=== PATIENT | male | born 1980 | race Caucasian/White ===

== ENCOUNTER → 2020-03-21 11:38 | Outpatient (CLI) | payer BC, SELFPAY ==
[2020-03-21 11:45] LABS: Bacteria Urine None Seen; RBC Urine None Seen (0-5/HPF)
[2020-03-21 12:21] LABS: Appearance Urine UA CLEAR; Bilirubin Urine UA NEGATIVE (NEGATIVE); Color Urine UA YELLOW; Glucose Urine UA NEGATIVE (Negative); Ketones Urine UA NEGATIVE (NEGATIVE); Leukocyte Esterase Urine UA NEGATIVE (NEGATIVE); Nitrite Urine UA NEGATIVE (Negative); Occult Blood Urine UA NEGATIVE (Negative); Protein Urine UA NEGATIVE (Negative); Specific Gravity Urine UA 1.015 (1.000-1.035); Urobilinogen Urine UA 0.2 E.U./dL (0.2); pH Urine UA 7.5 (4.5-8.0)
[2020-03-21 12:23] LABS: Add Manual Diff / Slide Review NO; Basophils Absolute Auto 0 /uL (0-100); Basophils Percent Auto 0.3 % (0-2); Eosinophils Absolute Auto 0 /uL (0-450); Eosinophils Percent Auto 0.4 % (2-4); Hematocrit 46.8 % (41-53); Hemoglobin 16.1 g/dL (13.5-17.5); Lymphocytes Absolute Auto 1300 /uL (1100-4500); Lymphocytes Percent Auto 28.4 % (25-40); Mean Corpuscular HGB Conc 34.4 % (30-36); Mean Corpuscular Volume 87.1 fL (80-100); Monocytes Absolute Auto 400 /uL (0-900); Monocytes Percent Auto 7.8 % (3-14); Neutrophils Absolute Auto 2900 /uL (1500-7000); Neutrophils Percent Auto 63.1 % (50-75); Platelet Count 179 X10^3/uL (150-400); Red Blood Cell Count 5.37 X10^6/uL (4.5-5.9); Red Cell Distribution Width 12.9 % (11.6-14.8); White Blood Cell Count 4.6 X10^3/uL (4.5-11.0)
[2020-03-21 12:30] LABS: Hemoglobin A1C% w Est Avg Glu 5.4 % (4.0-6.0)
[2020-03-21 12:36] LABS: Squamous Epithelial Cell Urine 0-1 /HPF (0-5/HPF); WBC Urine 0-1/HPF (0-5/HPF)
[2020-03-21 12:37] LABS: Culture Indicated Urine Cult Not Indicated; Hyaline Casts Urine 0-1/LPF
[2020-03-21 12:57] LABS: Creatinine Urine Random 144.5 mg/dL
[2020-03-21 12:58] LABS: Alanine Aminotransferase 23 IU/L (<50); Albumin 4.6 g/dL (3.5-5.0); Albumin Globulin Ratio 1.5 (1.0-2.8); Alkaline Phosphatase 61 U/L (38-126); Aspartate Aminotransferase 27 IU/L (17-59); BUN Creatinine Ratio 19.8 (6-22); Blood Urea Nitrogen 21 mg/dL (9-20); Calcium 9.4 mg/dL (8.4-10.2); Carbon Dioxide 30 mmol/L (22-32); Chloride 102 mmol/L (98-107); Cholesterol 156 mg/dL (140-199); Estimated Glomerular Filt Rate > 60.0 mL/min (>60); Gamma Glutamyl Transpeptidase 19 U/L (15-73); Globulin 3.1 g/dL (1.7-4.1); Glucose 87 mg/dL (70-100); HDL Cholesterol 61 mg/dL (40-60); HEMOLYSIS < 15 (0-50); LDL Cholesterol Calculated 84 mg/dL (<100); Magnesium 2.1 mg/dL (1.6-2.3); Potassium 4.2 mmol/L (3.4-5.1); Sodium 139 mmol/L (137-145); Total Protein 7.7 g/dL (6.3-8.2); Triglycerides 54 mg/dL (35-150); Uric Acid 5.6 mg/dL (3.5-8.5)
[2020-03-21 12:59] LABS: Iron 73 ug/dL (49-181); Microalbumi Creatinin Ratio Ur 7.6 ug/mg CR (<30); Microalbumin Urine Random 1.1 mg/dL (0-1.6)
[2020-03-21 13:02] LABS: High Sensitivity CRP - Cardiac 0.1 mg/L (1.0-3.0)
[2020-03-21 13:08] LABS: Total Iron Binding Capacity 334 ug/dL (261-462)
[2020-03-21 13:30] LABS: TSH w/ Reflex to FT4 1.83 uIU/mL (0.47-4.68)
[2020-03-21 13:33] LABS: Ferritin 51 ng/mL (18-464)
[2020-03-21 13:48] LABS: Vitamin B12 308 pg/mL (239-931)
[2020-03-22 07:02] LABS: Apolipoprotein B 70 mg/dL (<90)
[2020-03-24 11:18] LABS: Lipoprotein (a) 10.4 nmol/L (<75.0)
== END ==
PROVIDERS: PCP Registered Nurse Diabetes Educator; Referring Provider Registered Nurse Diabetes Educator; Visit Provider Registered Nurse Diabetes Educator
DX: Z00.00 Encounter for general adult medical examination without abnormal findings (principal)
CPT/HCPCS: 36415; 80053; 80061; 81001; 82043; 82172; 82570; 82607; 82728; 82977; 83036; 83540; 83550; 83695; 83735; 84443; 84550; 85025; 86140

== ENCOUNTER → 2020-05-28 08:26 | Outpatient (CLI) | payer BC, SELFPAY ==
[2020-05-28 11:42] LABS: COVID19 -Nasal RAPID Negative (Negative)
== END ==
PROVIDERS: PCP Registered Nurse Diabetes Educator; Visit Provider Physician Assistant
DX: Z11.59 Encounter for screening for other viral diseases (principal)
CPT/HCPCS: 87635

== ENCOUNTER → 2020-05-30 08:53 | Outpatient (CLI) | payer BC, SELFPAY ==
--- NOTE | 2020-05-30 08:54 | DI.ECHO.S_ITS ---
[place] +---------+ [facility] +---------+ : : [address] : : : : [id number] : : : : Phone: [phone]+ Echocardiogram Report + + :Name: IRINA BRIDGES Study Date: 05/30/2020 Height: 70 in : [id number] 175 lb : : Gender: Male BSA: 2.0 m2 : :: 1980 Age: 39 yrs BP: 128/73 mmHg: :Reason For Study: Abnormal EKG : : Performed By: Gina Mcmanus : :Referring: МАРИЯ ZEE : + + Interpretation Summary Sinus bradycardia; heart rate is 49-55 bpm. Normal LV size, wall thickness, wall motion and LV systolic function. EF is 60-65%. Normal chamber sizes. No valvular abnormalities. No prior study available for comparison. Procedure: A two-dimensional transthoracic echocardiogram with color flow and Doppler was performed. The study quality was technically adequate. There is no prior echocardiogram noted for this patient. The patient was in sinus bradycardia with heart rates between 49-55 bpm during the exam. Left Ventricle: The left ventricle is normal in size and wall thickness. The ejection fraction is estimated to be 60-65%. Right Ventricle: The right ventricle is normal in size and function. Atria: Borderline left atrial enlargement. Borderline right atrial enlargement. There is no Doppler evidence for an interatrial shunt. Mitral Valve: The mitral valve is normal in structure and function. There is mild mitral regurgitation. Aortic Valve: The aortic valve is trileaflet. The aortic valve opens well. No aortic regurgitation is present. Tricuspid Valve: The tricuspid valve is normal in structure and function. There is mild tricuspid regurgitation. The right ventricular systolic pressure is estimated to be at least 26 mmHg based on an estimated right atrial pressure of 3 mm Hg. Pulmonic Valve: The pulmonic valve leaflets are thin and pliable; valve motion is normal. There is a trace or physiologic amount of pulmonic regurgitation. Great Vessels: The aortic root is normal size. The ascending aorta is normal in size. The pulmonary artery is normal size. The IVC is of normal diameter and collapses greater than 50% with a sniff. This suggests a low right atrial pressure of 3 mm Hg. Pericardium/ Pleura There is no pericardial effusion. MMode/2D Measurements & Calculations LVIDd: 5.0 cm LVOT diam: 2.1 cm LVIDs: 3.6 cm Ao root diam: 3.3 cm FS: 28.1 % asc Aorta Diam: 3.1 cm IVSd: 0.86 cm LVPWd: 0.97 cm LV shelton. diameter/BSA (cm/m^2): 2.6 LV sys. diameter/BSA (cm/m^2): 1.8 LA A2 area: 22.0 cm2 RA long axis: 5.3 cm LA A4 area: 20.2 cm2 RA area: 20.2 cm2 LA length (vol): 5.5 cm RA vol: 65.7 ml LA vol: 68.2 ml RA : 33.3 ml/m2 LA vol index: 34.6 ml/m2 IVC diam: 2.0 cm RVD1 (basal): 4.1 cm TAPSE: 2.1 cm Doppler Measurements & Calculations Ao V2 max: 111.7 cm/sec LVOT Max Parvez: 117.2 cm/sec Ao V2 mean: 77.8 cm/sec LV V1 max P.5 mmHg Ao max P.0 mmHg LV V1 VTI: 22.6 cm Ao mean P.7 mmHg DE(I,D): 3.9 cm2 Ao V2 VTI: 21.1 cm DE(V,D): 3.8 cm2 sev ratio: 1.1 DE indexed to BSA (cm^2/m^2): 2.0 MV E max parvez: 75.5 cm/sec TR max parvez: 239.1 cm/sec MV A max parvez: 47.0 cm/sec TR max P.9 mmHg MV E/A: 1.6 PA V2 max: 84.4 cm/sec Med Peak E' Parvez: 8.8 cm/sec PA V2 mean: 54.9 cm/sec E/E' med: 8.5 PA mean P.4 mmHg Lat Peak E' Parvez: 16.5 cm/sec PA Accel Time: 0.14 sec E/E' lat: 4.6 E/e' average: 6.6 MV dec time: 0.17 sec SV(LVOT): 82.0 ml Electronically signed by: Angela Souza M.D. on Reading Physician:05/30/2020 10:03 PM
== END ==
PROVIDERS: PCP Registered Nurse Diabetes Educator; Referring Provider Registered Nurse Diabetes Educator; Visit Provider Registered Nurse Diabetes Educator
DX: R94.31 Abnormal electrocardiogram [ECG] [EKG] (principal)
CPT/HCPCS: 93306

== ENCOUNTER → 2020-06-18 08:17 | Outpatient (CLI) | payer BC, SELFPAY ==
[2020-06-18 10:44] LABS: COVID19 -Nasal RAPID Negative (Negative)
== END ==
PROVIDERS: PCP Registered Nurse Diabetes Educator; Visit Provider Physician Assistant
DX: Z11.59 Encounter for screening for other viral diseases (principal)
CPT/HCPCS: 87635

== ENCOUNTER → 2020-06-20 10:29 | Outpatient (CLI) | payer BC, SELFPAY ==
--- NOTE | 2020-06-20 14:41 | PM.TREADMILL ---
Cardiac Stress Test Report Referral & Results Date Patient Seen: 06/20/20 Requesting provider: Hayden Garcia Indication: Abnormal ECG Rest ECG: Widespread T-wave abnormalities and borderline LVH Procedure Note: Today following both written and verbal informed consent the patient was exercised according to a standard Sadiq protocol patient went for a total of 15 minutes 26 seconds achieving a maximum heart rate of 157 maximum systolic blood pressure of 185. This is approximately 14.8 METS. Exercise was terminated at this point because of targets met. Patient was also given Cardiolite through a previously started Hep-Lock IV by the diagnostic imaging staff approximately 1 minute prior to the cessation of exercise. There are no ST-T segment changes identified Normal heart rate and blood pressure response to exercise including a rapid deceleration to heart rate less than 100 Function aerobic impairment rates-25% on the active scale Impression: Excellent exercise capacity and no evidence of ischemia Please see perfusion imaging report as well Please note: Actual ECG tracings can be found in the PACS system.
--- NOTE | 2020-06-20 19:32 | DI.NM.S_ITS ---
DATE OF SERVICE: 06/20/2020 PROCEDURE: Exercise perfusion study. INDICATIONS: Abnormal EKG. RADIOPHARMACEUTICAL: 25.4 millicurie technetium-99m Myoview IV was injected at stress and 9.9 millicurie technetium-99m Myoview IV was injected at rest. CARDIAC STRESS: The patient underwent exercise perfusion study under the supervision of an attending staff. He walked on Sadiq protocol for 15 minutes 26 seconds, achieved 92 percent of target heart rate, normal blood pressure response, 14.8 METs of workload and functional aerobic impairment -25 percent. No chest pain. Baseline EKG revealed sinus rhythm with LVH, RSR-in V1 to V2 and secondary repolarization changes with T-wave inversion in V1 to V2. No typical Brugada pattern was seen. During stress, no convincing ischemic changes seen. There were no significant arrhythmias seen. RAW DATA: Increased subdiaphragmatic activity. GATED STUDY: Resting LV ejection fraction 54 and stress LV ejection fraction 60 percent without any obvious wall motion abnormalities. Resting end-diastolic volume 171 mL. TID ratio 0.77, which is within normal limits. Lung/heart ratio 0.34, which is within normal limits. MYOCARDIAL PERFUSION: Stress supine, resting supine and stress prone images were compared to each other. Stress supine and resting supine images reveal small size, mildly decreased perfusion of inferior wall, which got resolved during prone images, suggestive of diaphragmatic tissue attenuation artifact. No convincing ischemia infarction pattern seen. CONCLUSION: I will call this study likely a normal myocardial perfusion study with evidence of diaphragmatic tissue attenuation artifact which got resolved during prone images. The patient has excellent exercise tolerance. Functional aerobic impairment -25 percent. Normal hemodynamic response. No ischemic EKG changes during stress. No significant arrhythmias. Left ventricular function is preserved. Overall this is a low-risk myocardial perfusion scan. Pa Perez - TREOVN/yeimi/danish doc#: [id number]/job#: [id number] dd: 06/20/2020 17:22:00 dt: 06/20/2020 18:40:00 DICTATING MD/COPIES TO: Nicole Sow MD COPIES MNE: ERMA;
== END ==
PROVIDERS: PCP Registered Nurse Diabetes Educator; Referring Provider Registered Nurse Diabetes Educator; Visit Provider Registered Nurse Diabetes Educator
DX: R94.31 Abnormal electrocardiogram [ECG] [EKG] (principal)
CPT/HCPCS: 78452; 93016; 93017; 93018; A9502